=== PATIENT | male | born 1995 | race Caucasian/White ===

== ENCOUNTER → 2019-04-19 16:03 | Outpatient (CLI) | payer OTHER, SELFPAY ==
--- NOTE | 2019-04-19 | DI.MRI.S_ITS ---
PROCEDURE: MRFOOT LT WO CON INDICATIONS: Left foot pain TECHNIQUE: Noncontrast sagittal T1 spin echo and T2 fast spin echo with fat saturation, long-axis T1 spin echo and T2 fast spin echo with fat saturation, short-axis T1 spin echo and T2 fast spin echo with fat saturation through the forefoot. COMPARISON: None. FINDINGS: Image quality: Excellent. Bones and joints: No displaced fracture. There is moderate ill-defined STIR signal elevation within the lateral sesamoid of the 1st digit. The sesamoid bones appear in expected positions, without internal edema. No metatarsophalangeal joint degeneration. No intraosseous lesions. Soft tissues: Moderate effusion of the 1st metatarsophalangeal joint. The visualized plantar foot muscles demonstrate normal signal and bulk. Visualized flexor and extensor tendons appear intact, without tenosynovitis. The distal insertions of the peroneus brevis and longus tendons appear intact. The principal Lisfranc ligament appears intact. No soft tissue ganglion cysts or bursal fluid collections. Sagittal images demonstrate no evidence for plantar plate tears. IMPRESSION: 1. Marrow edema within the lateral sesamoid of the 1st digit, consistent with dysfunctional sesamoid. There is an associated adjacent 1st metatarsophalangeal joint effusion. Dictated by: Marilyn Schaefer M.D. on 04/19/2019 at 16:57 Approved by: Marilyn Schaefer M.D. on 04/19/2019 at 17:01
== END ==
PROVIDERS: Visit Provider Student in an Organized Health Care Education/Training Program
DX: M79.672 Pain in left foot (principal); M25.475 Effusion, left foot
CPT/HCPCS: 73718